=== PATIENT | male | born 1975 | race Asian ===

== ENCOUNTER 2017-06-24 02:23 | Emergency (ER) | payer BC ==
[2017-06-24 04:43] VITALS: BP 129/97
== END 2017-06-24 04:43 | disposition home or self-care (01) ==
LOC: ED 02:23
DX: L50.0 Allergic urticaria (principal); I10 Essential (primary) hypertension; T39.315A Adverse effect of propionic acid derivatives, initial encounter; Y92.89 Other specified places as the place of occurrence of the external cause; Z88.6 Allergy status to analgesic agent
CPT/HCPCS: J1200; J2930; J3490; J7030